=== PATIENT | female | born 1940 | race Hispanic/Latino ===

== ENCOUNTER 2017-05-11 17:20 | Emergency (ER) | payer MEDICARE ==
--- NOTE | 2017-05-11 20:52 | Cat Scan Report ---
FINAL REPORT EXAM: CT ABDOMEN PELVIS WO CON HISTORY: flank pain w/ h/o kidney stones TECHNIQUE: Serial axial images through the abdomen and pelvis with coronal and sagittal reconstruction. PRIORS: None. FINDINGS: Lung bases are clear. No pleural effusion is seen. Calcified granulomata are seen in the liver and spleen. Gallbladder is absent. Pancreas appears normal. Adrenal glands appear normal. Vascular calcifications are seen in the kidneys. There is a punctate nonobstructing calcification in the inferior pole of the left kidney. There are hypodense foci associated with the renal cortex, bilaterally, which are too small to definitely characterize. No stones are seen along the course of the ureters. Atherosclerotic changes are seen in the aorta. No aneurysmal dilatation is seen. Bladder appears normal. Uterus is absent. Scattered diverticula are seen arising from the colon. Appendix appears normal. No free fluid. Sequelae from inguinal hernia repair are noted. There are degenerative changes in the spine. There is compression deformity in the L1 vertebral body. IMPRESSION: 1. Punctate nonobstructing calcification is seen in the left kidney. No stones are seen along the course of the ureters. There is not evidence of hydronephrosis or other obstructive uropathy. 2. There are hypodense foci in the kidneys which are too small to definitely characterize. 3. No free fluid or inflammatory changes are seen in the abdomen or pelvis. 4. Diverticulosis. 5. There is compression deformity in the L1 vertebral body. There are currently no studies available for comparison. If there is concern for acute or subacute fracture at this level, consider MRI with inversion recovery sequence for further evaluation.
[2017-05-12] MEDS ORDERED: NORCO 5/325 PO ONE (00:06)
--- NOTE | 2017-05-12 00:12 | Emergency Department Report ---
HPI - General Chief Complaint: Back Pain/Injury Time Seen by Provider: 05/11/17 23:54 - HPI HPI: Room 5 The patient is 76-year-old female presented with a chief complaint of left flank pain and right small toe pain. The patient states for one week she has had intermittent pain along the left flank. Patient denies nausea/vomiting, dysuria or hematuria. Patient denies any recent trauma but states 3-4 months ago she fell out of the bed onto her back. The patient states she believes she has a kidney stone because it feels like her previous kidney stones. The patient states 2 days ago she accidentally bumped her right small toe and then dropped the garbage can on it the following day. Patient complains of pain of the right small toe. Patient gets her pain score of 3/10 Location: [See above] Duration: [See above] Quality: Pain Severity: 3/10 Modifying factors: Movement Increases pain Context: [see above] Mode of transportation: [not driving] ED Past Medical Hx - Past Medical History Previous Medical History?: Yes Hx Hypertension: Yes Hx Kidney Stones: Yes Additional medical history: UTI. DDD. Diverticulitis - Surgical History Past Surgical History?: Yes Hx Cholecystectomy: Yes Additional Surgical History: hysterectomy. lithotripsy - Family History Family history: no significant - Social History Smoking Status: Current Every Day Smoker (1/2 pack per day) Substance Use Type: None (denies illicit drug use) - Medications Home Medications: Home Medications Medication Instructions Recorded Confirmed Last Taken Type Baclofen [Lioresal] 10 mg PO BID 11/25/15 11/25/15 Unknown History Levofloxacin [Levaquin TAB] 500 mg PO QDAY #10 tablet 11/25/15 Unknown Rx Levothyroxine [Synthroid] 125 mcg PO QAM 11/25/15 11/25/15 Unknown History Lisinopril [Zestril TAB] 40 mg PO QDAY 11/25/15 11/25/15 Unknown History amLODIPine [Norvasc] 5 mg PO DAILY #30 tab 11/25/15 Unknown Rx traMADol [Ultram 50 MG tab] 50 mg PO Q6HR PRN #14 tablet 11/25/15 Unknown Rx HYDROcodone/APAP 5-325 [[place] 1 - 2 each PO Q6HR PRN #20 tablet 05/12/17 Unknown Rx 5/325] Ibuprofen [Motrin 800 MG tab] 800 mg PO Q8HR PRN #20 tablet 05/12/17 Unknown Rx Levofloxacin [Levaquin] 750 mg PO QDAY #10 tablet 05/12/17 Unknown Rx ED Review of Systems ROS: Stated complaint: RIGHT FOOT INJURY,NAUSEA, BACK PAIN Other details as noted in HPI Comment: All other systems reviewed and negative Constitutional: denies: chills, fever Eyes: denies: eye pain, eye discharge, vision change ENT: denies: ear pain, throat pain Respiratory: denies: cough, shortness of breath, wheezing Cardiovascular: denies: chest pain, palpitations Endocrine: no symptoms reported Gastrointestinal: denies: abdominal pain, nausea, diarrhea Genitourinary: denies: urgency, dysuria, discharge Musculoskeletal: back pain, arthralgia Skin: denies: rash, lesions Neurological: denies: headache, weakness, paresthesias Psychiatric: denies: anxiety, depression Hematological/Lymphatic: denies: easy bleeding, easy bruising Physical Exam - Physical Exam Vital Signs: Vital Signs 05/11/17 17:26 Temperature 97.8 F Pulse Rate 115 H Respiratory 18 Rate Blood Pressure 183/86 O2 Sat by Pulse 94 Oximetry Physical Exam: GENERAL: The patient is well-developed well-nourished female lying on stretcher not appearing to be in acute distress. [] HEENT: Normocephalic. Atraumatic. Extraocular motions are intact. Patient has moist mucous membranes. NECK: Supple. Trachea midline CHEST/LUNGS: Clear to auscultation. There is no respiratory distress noted. HEART/CARDIOVASCULAR: Regular. There is no tachycardia. There is no gallop rub or murmur. ABDOMEN: Abdomen is soft, with trace discomfort to palpation in the left upper quadrant. There is no rebound or guarding. Patient has normal bowel sounds. There is no abdominal distention. SKIN: There is no rash. There is pale erythema surrounding the right small toe (does not appear to be cellulitis). There is no diaphoresis. NEURO: The patient is awake, alert, and oriented. The patient is cooperative. The patient has normal speech MUSCULOSKELETAL: There is tenderness palpation of the right small toe. There is no axial step off ED Course Vital Signs 05/11/17 17:26 Temperature 97.8 F Pulse Rate 115 H Respiratory 18 Rate Blood Pressure 183/86 O2 Sat by Pulse 94 Oximetry ED Medical Decision Making - Lab Data Laboratory Tests 05/12/17 00:30 Urine Color Yellow Urine Turbidity Clear Urine pH 6.0 Ur Specific [place] 1.014 Urine Protein 30 mg/dl Urine Glucose (UA) Neg Urine Ketones Neg Urine Blood Sm Urine Nitrite Pos Urine Bilirubin Neg Urine Urobilinogen < 2.0 Ur Leukocyte Esterase Lg Urine WBC (Auto) > 182.0 H Urine RBC (Auto) 24.0 U Epithel Cells (Auto) 21.0 H Urine Bacteria (Auto) 2+ Urine WBC Clumps 2+ Ur Transition Epith Cell 1 Amorphous Crystals Few Urine Mucus Few - Radiology Data Radiology results: report reviewed (CT abdomen and pelvis), image reviewed (CT abdomen and pelvis, right toe x-ray) interpreted by me: Right toes [id number] of the base of the right small toe CT abdomen and pelvis (regular radiologist)-punctate nonobstructing calcification is seen on the left kidney. No stones are seen along the course of the ureters. There is no evidence of hydronephrosis or obstructive uropathy. There are hypodense foci in the kidneys which are too small to characterize. No free fluid or inflammatory changes are seen in the abdomen or pelvis. Diverticulosis. There is compression deformity and L1 vertebral body. There are currently no studies available for comparison. There is concern for acute or subacute fracture at this level, consider MRI with inversion recovery sequence for further evaluation. - Differential Diagnosis renal colic, toe fracture, pyelonephritis, UTI Critical care attestation.: If time is entered above; I have spent that time in minutes in the direct care of this critically ill patient, excluding procedure time. ED Disposition Clinical Impression: Left flank pain, Toe fracture, right, Compression fracture of L1 lumbar vertebra, Pyelonephritis, acute Disposition: [id number] TO HOME OR SELFCARE Is pt being admited?: No Does the pt Need Aspirin: No Condition: Stable Instructions: Toe Fracture (ED), Vertebral Compression Fracture (ED), Acute Pyelonephritis (ED) Additional Instructions: Return to the emergency department immediately should you develop worsening symptoms, fever, inability to tolerate food or liquid or any other concerns. Prescriptions: HYDROcodone/APAP 5-325 [[place] 5/325] 1 - 2 each PO Q6HR PRN #20 tablet PRN Reason: Pain Ibuprofen [Motrin 800 MG tab] 800 mg PO Q8HR PRN #20 tablet PRN Reason: Pain Levofloxacin [Levaquin] 750 mg PO QDAY #10 tablet Referrals: JARRELL BOWSER [Other] - 3-5 Days APOLINAR BERUMEN MD [Staff Physician] - [facility] (Dr. Berumen is an orthopedic surgeon. Please follow up with him for further evaluation of your toe fracture and L1 compression deformity) Time of Disposition: 01:18
[2017-05-12 00:15] VITALS: BP 143/65
[2017-05-12 01:08] LABS: Bacteria,Urine 2+ /HPF (Negative); Bilirubin,Urine NEG (Negative); Blood,Urine SM (Negative); Ketones,Urine NEG (Negative); Leukocyte Esterase,Urine LG (Negative); Mucus,Urine FEW /HPF; Nitrite,Urine POS (Negative); Urobilinogen,Urine < 2.0 mg/dL (<2.0)
[2017-05-12 01:09] LABS: WBC,Urine > 182.0 /HPF (0.0-6.0)
[2017-05-12] MEDS ORDERED: LEVAQUIN PO ONE (01:17)
--- NOTE | 2017-05-12 09:06 | XRay Report ---
RIGHT FOOT, 3 views: History: Pain. Subtle nondisplaced fracture is identified through the proximal phalanx of the fifth toe. No calcified callus. The remaining bony structures and joint spaces are within normal limits. The soft tissues are unremarkable. IMPRESSION: Traumatic fracture, proximal phalanx, fifth toe.
== END 2017-05-12 01:30 | disposition home or self-care (01) ==
LOC: ED 17:20
DX: S92.591A Other fracture of right lesser toe(s), initial encounter for closed fracture (principal); S32.018A Other fracture of first lumbar vertebra, initial encounter for closed fracture; N12 Tubulo-interstitial nephritis, not specified as acute or chronic; I10 Essential (primary) hypertension; F17.200 Nicotine dependence, unspecified, uncomplicated; Z88.8 Allergy status to other drugs, medicaments and biological substances; W06.XXXA Fall from bed, initial encounter; Y93.89 Activity, other specified; Y92.89 Other specified places as the place of occurrence of the external cause; Y99.8 Other external cause status
CPT/HCPCS: 74176; 81001; 87076; 87086; 87186